=== PATIENT | female | born 1980 | race African-American/Black ===

== ENCOUNTER 2018-05-11 14:23 | Emergency (ER) | payer MEDICAID ==
[~2018-05-11] VITALS: Ht 165.1 cm; Wt 76.4 kg
[2018-05-11 14:28] VITALS: BP 177/88; PULSE 96; TEMP 97
== END 2018-05-11 15:32 | disposition home or self-care (01) ==
LOC: COL.ER 14:23
DX: M70.51 Other bursitis of knee, right knee (principal)